=== PATIENT | male | born 1980 | race Two or more races ===

== ENCOUNTER 2023-09-17 15:33 | Emergency (ER) | payer OTHER ==
[~2023-09-17] VITALS: Ht 170.2 cm; Wt 95.3 kg
[2023-09-17] MEDS ORDERED: TETANUS & DIPHTHERIA TOX,ADULT 0.5 ML VIAL IM ONE (16:30)
== END 2023-09-17 16:43 | disposition home or self-care (01) ==
LOC: ER 15:34
DX: S61.511A Laceration without foreign body of right wrist, initial encounter (principal); W45.8XXA Other foreign body or object entering through skin, initial encounter; Y93.89 Activity, other specified; Y92.89 Other specified places as the place of occurrence of the external cause; Y99.9 Unspecified external cause status; Z88.0 Allergy status to penicillin